=== PATIENT | male | born 1990 ===

== ENCOUNTER 2016-12-03 08:26 | Emergency (ER) | payer SELFPAY ==
[2016-12-03 08:32] VITALS: BP 124/71; PULSE 86; TEMP 98; O2SAT 98; BMI 26.6
[2016-12-03 08:57] VITALS: RESP 16
--- NOTE | 2016-12-03 09:04 | ED PDOC ---
HPI: General Adult Time Seen by Provider: 12/03/16 08:40 Chief Complaint (Nursing): Male Genitourinary Chief Complaint (Provider): hematuria History Per: Patient History/Exam Limitations: no limitations Additional Complaint(s): 26yo male comes to the ED stating that yesterday he was urinating to slowly so he squeezed his penis to stop the flow of urine, after which the urine flow came out quickly, followed by a little bit of blood. States now he has pain in his left flank pain and dysuria whenever he urinates. No Hx kidney stones. No abdominal pain. Patient also states he stuck q-tips into the tip of his penis but did not see any blood. PMD: [facility] Past Medical History Reviewed: Historical Data, Nursing Documentation, Vital Signs Vital Signs: Last Vital Signs Temp 98 F 12/03/16 08:31 Pulse 86 12/03/16 08:31 Resp 16 12/03/16 08:43 BP 124/71 12/03/16 08:31 Pulse Ox 98 12/03/16 11:08 - Medical History PMH: Asthma - Family History Family History: States: Unknown Family Hx - Social History Current smoker - smoking cessation education provided: Yes (3-4 cigarettes daily ) Alcohol: Social Drugs: Denies - Immunization History Hx Tetanus Toxoid Vaccination: No Hx Influenza Vaccination: No Hx Pneumococcal Vaccination: No - Allergies Allergies/Adverse Reactions: Allergies Allergy/AdvReac Type Severity Reaction Status Date / Time banana Allergy ITCHING Verified 12/03/16 08:51 peanut Allergy ANAPHYLAXIS Verified 07/10/16 11:27 pollen extracts Allergy ITCHING Verified 12/03/16 08:51 ADVOCADO Allergy ITCHING Uncoded 12/03/16 08:51 Review of Systems ROS Statement: Except As Marked, All Systems Reviewed And Found Negative Constitutional: Negative for: Fever Gastrointestinal: Negative for: Abdominal Pain Genitourinary Male: Positive for: Dysuria, Hematuria Musculoskeletal: Positive for: Back Pain Physical Exam - Reviewed Nursing Documentation Reviewed: Yes Vital Signs Reviewed: Yes - Physical Exam Appears: Positive for: Well, Non-toxic, No Acute Distress Head Exam: Positive for: ATRAUMATIC, NORMAL INSPECTION, NORMOCEPHALIC Skin: Positive for: Warm, Dry Eye Exam: Positive for: EOMI, PERRL Cardiovascular/Chest: Positive for: Regular Rate, Rhythm Respiratory: Positive for: Normal Breath Sounds. Negative for: Rales, Rhonchi, Wheezing Gastrointestinal/Abdominal: Positive for: Soft. Negative for: Tenderness Male Genital Exam: Positive for: other (ED Scribe Kareem Wilhelm present as business office technology instructor. Normal external exam. ) Extremity: Positive for: Normal ROM - ECG O2 Sat by Pulse Oximetry: 98 (RA) Pulse Ox Interpretation: Normal Medical Decision Making Medical Decision Makin: Patient instructed to never insert foreign objects into the tip of his penis. Urinalysis ordered. Ibuprofen given. 1107 patient feeling better. urinalysis negative. Urine culture was sent. Patient stable for discharge. Return if symptoms worsen. Follow up with urology as outpatient. stable for discharge. diagnosis explained to patient. Disposition - Clinical Impression Clinical Impression: Penile irritation - Patient ED Disposition Is Patient to be Admitted: No Counseled Patient/Family Regarding: Studies Performed, Diagnosis, Need For Followup - Disposition Referrals: [facility] [Outside] Mike Ken MD [Medical Doctor] - Disposition: Routine/Home Disposition Time: 10:00 Condition: IMPROVED Additional Instructions: follow up with urologist in 1-2 days return to the ED with any worsening or concerning symptoms. Additional Comments - Additional Comments Additional Comments: Scribe Attestation: Documented by Kareem Wilhelm acting as a scribe for Cheri Shaw MD. Provider Scribe Attestation: All medical record entries made by the Scribe were at my direction and personally dictated by me. I have reviewed the chart and agree that the record accurately reflects my personal performance of the history, physical exam, medical decision making, and the department course for this patient. I have also personally directed, reviewed, and agree with the discharge instructions and disposition.
[2016-12-03 09:57] LABS: RBC URINE 2 /hpf (0-3); URINE BACTERIA RARE (<OCC); URINE BILIRUBIN NEGATIVE (NEGATIVE); URINE BLOOD NEGATIVE (NEGATIVE); URINE COLOR YELLOW (YELLOW); URINE GLUCOSE (UA) NEG (Normal); URINE KETONE NEGATIVE (NEGATIVE); URINE LEUKOCYTE ESTERASE NEG Leu/uL (Negative); URINE PROTEIN NEGATIVE (NEGATIVE); URINE UROBILINOGEN 0.2-1.0 mg/dL (0.2-1.0); WBC URINE 2 /hpf (0-5)
== END 2016-12-03 11:18 | disposition short-term general hospital (02) ==
LOC: H.ER 08:26
DX: R31.9 Hematuria, unspecified (principal); N48.89 Other specified disorders of penis; J45.909 Unspecified asthma, uncomplicated; F17.210 Nicotine dependence, cigarettes, uncomplicated

== ENCOUNTER 2017-10-25 18:11 | Emergency (ER) | payer MEDICAID ==
[2017-10-25 18:11] VITALS: BMI 26.6
[2017-10-25 18:57] VITALS: BP 120/77; PULSE 84; RESP 16; TEMP 98.6; O2SAT 98
--- NOTE | 2017-10-25 20:34 | ED PDOC ---
HPI: General Adult Time Seen by Provider: 10/25/17 18:59 Chief Complaint (Nursing): Abnormal Skin Integrity Chief Complaint (Provider): Abnormal Skin Integrity History Per: Patient History/Exam Limitations: no limitations Onset/Duration Of Symptoms: Persistent Current Symptoms Are (Timing): Still Present Additional Complaint(s): 27 year old male with a history of eczema presents to the ED with a eczema flare up all over his body. Patient was unable to see a doctor due to no insurance but he was recently able to obtain it. He recently found 2 small lumps in the right anterior of the neck and left axillary. He denies fever, CP, SOB, URI symptoms, sore throat, and throat or tongue swelling. PCP: Varun Lora Past Medical History Reviewed: Historical Data, Nursing Documentation, Vital Signs Vital Signs: Last Vital Signs Temp 98.6 F 10/25/17 18:54 Pulse 84 10/25/17 18:54 Resp 16 10/25/17 18:54 BP 120/77 10/25/17 18:54 Pulse Ox 98 10/25/17 21:14 - Medical History PMH: Asthma - Surgical History Surgical History: No Surg Hx - Family History Family History: States: Unknown Family Hx - Social History Current smoker - smoking cessation education provided: Yes (Light Smoker < 10 Cigarettes Daily) Drugs: Cannabis - Immunization History Hx Tetanus Toxoid Vaccination: No Hx Influenza Vaccination: No Hx Pneumococcal Vaccination: No - Home Medications Home Medications: Ambulatory Orders Medication Instructions Recorded predniSONE [predniSONE Tab] 40 mg PO DAILY #8 tab 10/25/17 - Allergies Allergies/Adverse Reactions: Allergies Allergy/AdvReac Type Severity Reaction Status Date / Time avocado Allergy ITCHING Verified 10/25/17 18:53 banana Allergy ITCHING Verified 12/03/16 08:51 peanut Allergy ANAPHYLAXIS Verified 07/10/16 11:27 pollen extracts Allergy ITCHING Verified 12/03/16 08:51 Review of Systems ROS Statement: Except As Marked, All Systems Reviewed And Found Negative Constitutional: Positive for: Weight loss (losing >10 lbs since July ), Other (Fatigue). Negative for: Fever ENT: Negative for: Throat Swelling (No throat or tongue swelling) Cardiovascular: Negative for: Chest Pain Respiratory: Negative for: Shortness of Breath Skin: Positive for: Rash, Other (2 small lumps in right anterior neck and left axillary) Physical Exam - Reviewed Nursing Documentation Reviewed: Yes Vital Signs Reviewed: Yes - Physical Exam Comments: GENERAL APPEARANCE: Patient is awake, alert, oriented x 3, in no acute distress. SKIN: (+) erythematous lichenified rash diffusely. HENT: (-) conjunctival injection. Oropharynx: clear (-) tongue or lip swelling, (-) tonsillar exudates, (-) erythema. Airway: patent (-) stridor, (-) hoarseness. Mucous membranes moist. Nares: Patent (-) rhinorrhea. NECK: (+) non tender right anterior cervical lymphadenopathy, (-) tenderness, (+ ) FROM. CARDIOVASCULAR: Normal rate and rhythm. (-) murmur, (-) gallop. CHEST: (+) non tender left axillary lymphadenopathy, (-) rales, (-) wheezing, (- ) dyspnea, (-) stridor. Breath sounds equal bilaterally. ABDOMEN: Soft. (-) tenderness, (-) distention, (-) HSM. NEURO: Mental status: Patient is alert, oriented, and with normal strength and tone. - ECG O2 Sat by Pulse Oximetry: 98 (RA) Pulse Ox Interpretation: Normal Medical Decision Making Medical Decision Makin:59 Initial Plan: * Prednisone 40mg PO 19:14 Advised to follow up with a primary care physician and director of content and programming (see referrals provided) in 1-2 days without fail. Advised to take medication as prescribed and to follow up lymphadenopathy and recent weight loss with a doctor without fail to r/o any underlying condition. Return to the emergency room at any time for any new or worsening symptoms. Patient states he fully agrees with and understands discharge instructions. States that he agrees with the plan and disposition. Verbalized and repeated discharge instructions and plan. I have given the patient opportunity to ask any additional questions. Scribe Attestation: Documented by Andres Griffin acting as a scribe for Cheri Zhao PA-C MD Scribe Attestation: All medical record entries made by the Scribe were at my direction and personally dictated by me. I have reviewed the chart and agree that the record accurately reflects my personal performance of the history, physical exam, medical decision making, and the department course for this patient. I have also personally directed, reviewed, and agree with the discharge instructions and disposition. Disposition - Clinical Impression Clinical Impression: Eczema, Lymphadenopathy - Patient ED Disposition Is Patient to be Admitted: No Counseled Patient/Family Regarding: Diagnosis, Need For Followup, Rx Given - Disposition Referrals: Marquez Rodrigues MD [Staff Provider] - Agustín Zhang MD [Medical Doctor] - Disposition: Routine/Home Disposition Time: 19:14 Condition: STABLE Additional Instructions: Thank you for letting us take care of you today. You were treated for eczema, lymphadenopathy. The emergency medical care you received today was directed at your acute symptoms. If you were prescribed any medication, please fill it and take as directed. It may take several days for your symptoms to resolve. Return to the Emergency Department if your symptoms worsen, do not improve, or if you have any other problems. Please call one of the physicians/clinics you have been referred to that are listed on the Patient Visit Information form that is included in your discharge packet. Bring any paperwork you were given at discharge with you along with any medications you are taking to your follow up visit. Our treatment cannot replace ongoing medical care by a primary care provider (PCP) outside of the emergency department. Thank you for allowing the [facility] team to be part of your care today. Prescriptions: predniSONE [predniSONE Tab] 40 mg PO DAILY #8 tab Instructions: Eczema (Atopic Dermatitis) Forms: [employer] (Swedish) - PA / QUALITY ASSURANCE TESTER / Resident Statement MD/DO has reviewed & agrees with the documentation as recorded.
== END 2017-10-25 19:45 | disposition home or self-care (01) ==
LOC: H.ER 18:11
DX: L30.9 Dermatitis, unspecified (principal); R59.9 Enlarged lymph nodes, unspecified